=== PATIENT | male | born 1995 | race Caucasian/White ===

== ENCOUNTER 2017-06-02 02:10 | Emergency (ER) | payer OTHER ==
--- NOTE | 2017-06-02 02:40 | EDPHY ---
H & P Stated Complaint: left hand lac Time Seen by Provider: 06/02/17 02:24 HPI/ROS: Chief Complaint: Hand laceration HPI: 22-year-old male sustained a laceration in the palm of his hand at the base of his little finger with a serrated knife when he was trying to open a package about 3 hr ago. He is up-to-date in his tetanus. Does admit to drinking alcohol tonight. Denies any other injuries. ROS: 10 point Review of Systems is negative except as noted in the HPI. PMH: Denies Social History: No smoking, occasional alcohol, no recreational drug use Family History: non-contributory Physical Exam: Gen: Awake, Alert, slurred speech HEENT: Nose: no rhinorrhea Eyes: PERRLA, EOMI Mouth: Moist mucosa Ext: Left hand: There is a 2 cm horizontal laceration at the base of his 5th finger. It is into the subcutaneous fat only. He has full flexion strength of his D AP, PIP and MCP joint. Sensations intact distally. Capillary refills less than 2 sec. Skin: no rash Neuro: CN II-XII intact, Sensation grossly intact, Strength 5/5 in bilateral upper and lower extremities - Personal History Current Tetanus/Diphtheria Vaccine: Yes Current Tetanus Diphtheria and Acellular Pertussis (TDAP): Yes - Medical/Surgical History Hx Asthma: Yes Hx Chronic Respiratory Disease: No Hx Diabetes: No Hx Cardiac Disease: No Hx Renal Disease: No Hx Cirrhosis: No Hx Alcoholism: No Hx HIV/AIDS: No Hx Splenectomy or Spleen Trauma: No Other PMH: denies - Social History Smoking Status: Never smoked Constitutional: Initial Vital Signs Temperature (C) 36.3 C 06/02/17 02:14 Heart Rate 104 H 06/02/17 02:14 Respiratory Rate 16 06/02/17 02:14 Blood Pressure 149/94 H 06/02/17 02:14 O2 Sat (%) 96 06/02/17 02:14 O2 Delivery Mode Room Air Allergies/Adverse Reactions: No Known Allergies Allergy (Unverified 06/02/17 02:17) Home Medications: Medication Instructions Recorded Adderall 10 MG (*) 06/02/17 Medical Decision Making Procedures: Procedure: Laceration repair. Verbal consent was obtained from the patient. The 2 cm laceration on the left hand was anesthetized in the usual fashion. The wound was irrigated, draped and explored to its base with a gloved finger. There were no deep structures involved. No tendon injury was identified. The wound was repaired with 5, 5-0 Ethilon simple interrupted sutures. The wound repair was uncomplicated. The procedure was performed by myself. Departure - Departure Disposition: Home, Routine, Self-Care Clinical Impression: Hand laceration, Alcohol intoxication Condition: Good Instructions: Care For Your Stitches (ED), Laceration (ED), Alcohol Intoxication (ED) Additional Instructions: Sutures need to be removed in 10 days. Return to the emergency department for increasing redness, pain, swelling, discharge from the wound, fevers, chills, or any other concerns. Referrals: [facility] Valenzuela,. [Clinic] - As per Instructions
[2017-06-02 03:33] VITALS: BP 136/89
== END 2017-06-02 03:32 | disposition home or self-care (01) ==
PROC: 0HQGXZZ Repair Left Hand Skin, External Approach (ICD-10-PCS; principal; 2017-06-02)
DX: S61.412A Laceration without foreign body of left hand, initial encounter (principal); J45.909 Unspecified asthma, uncomplicated; F10.129 Alcohol abuse with intoxication, unspecified; W26.0XXA Contact with knife, initial encounter

== ENCOUNTER 2017-07-03 00:29 | Emergency (ER) | payer OTHER ==
--- NOTE | 2017-07-03 00:41 | EDPHY ---
H & P Time Seen by Provider: 07/03/17 00:33 HPI/ROS: Chief Complaint: Fall HPI: 22-year-old male was hanging out with friends this morning, drinking. Patient was sitting on the edge of a balcony when he accidentally fell backwards , approximately 10 ft to the ground. Patient does not recall landing. There is questionable loss of consciousness. On EMS arrival the patient was awake and alert. He is complaining of some pain behind his right shoulder, laceration is right forearm and some pain in his right leg. Denies headache. Denies neck pain. No chest pain, shortness of breath, abdominal pain, or any other complaints at this time. He has been awake alert and appropriate for EMS. ROS: 10 point Review of Systems is negative except as noted in the HPI. PMH: Denies Social History: No smoking, positive for alcohol, no recreational drug use Family History: non-contributory Physical Exam: Gen: Awake, Alert, Airway Intact, slurred speech, smells of alcohol HEENT: Head: Atraumatic Eyes: PERRLA, EOMI Nose: No epistaxis Mouth: Normal dentition, Airway patent Face: No deformity Neck: non-tender, no stepoff, Full ROM without pain Chest: non-tender, lungs CTA Heart: normal heart tones Abd: soft, non-tender, atraumatic Pelvis: non-tender, stable to AP and Lateral compression Back: atraumatic, no midline tenderness Ext: Patient has a 1.5 cm dog ear laceration on his right forearm, no bony tenderness or deformities, remainder of his extremity exam is unremarkable patient is complaining of some pain in his right leg however there is no bony tenderness or deformity. There is no discomfort with palpation or stressing. Also complaining of some discomfort behind his right shoulder. He has full range of motion right shoulder without pain. There is no reproducible tenderness. Skin: no rash Neuro: CN II-XII intact, Strength 5/5 in all extremities, sensation intact in all extremities - Medical/Surgical History Hx Asthma: Yes Hx Chronic Respiratory Disease: No Hx Diabetes: No Hx Cardiac Disease: No Hx Renal Disease: No Hx Cirrhosis: No Hx Alcoholism: No Hx HIV/AIDS: No Hx Splenectomy or Spleen Trauma: No Other PMH: denies - Social History Smoking Status: Never smoked Constitutional: Initial Vital Signs Temperature (C) 36.4 C 07/03/17 00:44 Heart Rate 94 07/03/17 00:44 Respiratory Rate 18 07/03/17 00:44 Blood Pressure 168/104 H 07/03/17 00:44 O2 Sat (%) 97 07/03/17 00:44 O2 Delivery Mode Room Air O2 (L/minute) 2 Allergies/Adverse Reactions: No Known Allergies Allergy (Unverified 06/02/17 02:17) Home Medications: Medication Instructions Recorded Adderall 10 MG (*) 06/02/17 Medical Decision Making Procedures: Procedure: Laceration repair. Verbal consent was obtained from the patient. The 1.5 cm laceration on the right forearm was anesthetized in the usual fashion. The wound was irrigated, draped and explored to its base with a gloved finger. There were no deep structures involved. No tendon injury was identified. The wound was repaired with 1 4-0 Ethilon horizontal mattress suture and 2, 4-0 Ethilon simple interrupted sutures. The wound repair was uncomplicated. The procedure was performed by myself. Differential Diagnosis: Is 22-year-old male status post fall from [place] with a laceration his arm. He is intoxicated. He has been observed in the emergency depart for 0.5 hr. He is not clinically sober. Is without complaint. He denies headache. He has a benign exam. His laceration has been closed. He is complaining of pain on his right shoulder. He has some tenderness over his AC joint. No bony tenderness. He does have full range of motion. X-ray shows no obvious fracture. Symptoms consistent probably with an AC separation. No leg pain. He is ambulating unassisted emergency department. He has sober friends here to give him a ride. He has been given wound care instructions. Will return for any concerns. Departure - Departure Disposition: Home, Routine, Self-Care Clinical Impression: Fall, Laceration of arm, Alcohol intoxication, AC joint pain Condition: Good Instructions: Care For Your Stitches (ED), Laceration (ED), Abuse of Alcohol ( ED), Alcohol Use Disorder (ED), Acromioclavicular Separation (ED) Additional Instructions: Sutures need to be removed in 7 days. Follow up with orthopedic surgeon, Dr. Hayes, in 4-5 days if you're shoulder pain is not improving. Please seek help to reduce your alcohol consumption. Return to the emergency department for increasing pain, headache, nausea, vomiting, confusion, or any other concerns. Referrals: NONE *PRIMARY CARE P,. [Primary Care Provider] - As per Instructions Constantin Hayse MD [Medical Doctor] - As per Instructions
[2017-07-03 05:12] VITALS: BP 116/69
== END 2017-07-03 05:47 | disposition home or self-care (01) ==
LOC: EDUNIT#
PROC: 0HQDXZZ Repair Right Lower Arm Skin, External Approach (ICD-10-PCS; principal; 2017-07-03)
DX: S51.811A Laceration without foreign body of right forearm, initial encounter (principal); S49.91XA Unspecified injury of right shoulder and upper arm, initial encounter; F10.129 Alcohol abuse with intoxication, unspecified; W13.0XXA Fall from, out of or through balcony, initial encounter
CPT/HCPCS: A4565

== ENCOUNTER 2017-07-09 13:52 | Emergency (ER) | payer OTHER ==
--- NOTE | 2017-07-09 15:31 | EDPHY ---
H & P Smoking Status: Never smoked Time Seen by Provider: 07/09/17 14:22 HPI/ROS: CHIEF COMPLAINT: Right leg pain HISTORY OF PRESENT ILLNESS: 22-year-old male presents to the emergency department with pain in his right leg. He states that he fell off of a deck over 1 week ago. He does not remember injuring his leg and if he did he was very minor. He does not recall any abrasion or puncture wound. He does not think that he was bit by anything. He states over last few days he has noticed redness, pain and swelling. He denies pain in his calf. Denies pain radiating up his leg into his knee or hip. ROS: Denies fever, chills, calf pain. (LaurenkatrinaNevaeh Celis) Past Medical/Surgical History: Negative (Nevaeh Olguin) Social History: [employer] student (SharifNevaeh Celis) Physical Exam: On examination of the right leg, there is redness from the distal 3rd of the right anterior leg with surrounding swelling. It is not circumferential. No lymphangitis. No calf pain. No palpable bony tenderness. No evidence of retained foreign body. His right ankle and right knee are nontender. Afebrile and nontoxic-appearing. (Lilia Olguinvini Celis) Constitutional: Initial Vital Signs Temperature (C) 36.8 C 07/09/17 13:58 Heart Rate 109 H 07/09/17 13:58 Respiratory Rate 16 07/09/17 13:58 Blood Pressure 128/66 H 07/09/17 13:58 O2 Sat (%) 94 07/09/17 13:58 O2 Delivery Mode Room Air Allergies/Adverse Reactions: No Known Allergies Allergy (Unverified 07/09/17 14:01) Home Medications: Medication Instructions Recorded Adderall 10 MG (*) 06/02/17 Cephalexin [Keflex] 500 mg PO QID #28 cap 07/09/17 Sulfamethox/Tmp 800/160 mg 1 tab PO BID #14 tab 07/09/17 [Bactrim DS] MDM/Departure - MDM Procedures: Procedure: Abscess drainage. The patient's abscess was located on the anterior right leg. Risks, benefits, alternatives discussed with the patient and consent obtained. The abscess was incised with a #11 blade and large amount of purulent drainage was expressed. The wound was irrigated and packed. The patient tolerated the procedure well. The procedure was performed by myself. (Nevaeh Olguin) ED Course/Re-evaluation: X-rays were obtained which revealed no fractures. This was obtained after incision and drainage. The gas and air seen on x-ray is likely as a result of post procedure. The wound was incised and a large amount of purulent drainage was expressed. The wound was irrigated packing was placed. The patient will return in 48 hr for packing removal and recheck. He was started on Keflex and Bactrim. Wound cultures pending. There is no evidence of compartment syndrome. The patient had relief after the wound was opened and drained. There is no evidence of bony involvement or osteomyelitis on x-ray. The patient was instructed to return sooner if he developed fever, increasing pain or swelling, or any other concerns. (Nevaeh Olguin) The patient was evaluated and managed by the Physician Fence Installer Foreman. I discussed the patient's presentation and course with the physician bakery assistant and agree with the evaluation. My co-signature indicates that I have reviewed this chart and I agree with the findings and plan of care as documented. I am the secondary supervising physician. (Eloisa Sarmiento) - Depart Disposition: Home, Routine, Self-Care Clinical Impression: Abscess of right leg Condition: Good Instructions: Cellulitis (ED), Abscess (ED) Additional Instructions: Keflex and Bactrim as directed for 1 week. Do not apply ice to the wound. You may apply warm compresses as discussed. Ibuprofen 600 mg every 8 hr as needed for pain. Prescriptions: Cephalexin [Keflex] 500 mg PO QID #28 cap Sulfamethox/Tmp 800/160 mg [Bactrim DS] 1 tab PO BID #14 tab Referrals: Deonna Sneed DO [Doctor of Osteopathy] - As per Instructions
[2017-07-09 15:42] VITALS: BP 128/89
== END 2017-07-09 15:42 | disposition home or self-care (01) ==
PROC: 0H9KXZZ Drainage of Right Lower Leg Skin, External Approach (ICD-10-PCS; principal; 2017-07-09)
DX: L02.415 Cutaneous abscess of right lower limb (principal)

== ENCOUNTER 2017-11-30 14:04 | Emergency (ER) | payer OTHER ==
[2017-11-30 14:08] VITALS: BP 133/79
--- NOTE | 2017-11-30 14:32 | EDPHY ---
H & P Stated Complaint: L ANKLE INJURY Time Seen by Provider: 11/30/17 14:26 HPI/ROS: CHIEF COMPLAINT: Left ankle pain and swelling HISTORY OF PRESENT ILLNESS: Patient is a 22-year-old man who rolled his ankle playing basketball last night. He has pain and swelling to the lateral malleolus. He has some pain to the distal fibula as well. No other injuries. No foot pain. No knee pain. He cannot bear weight. Severity: Moderate Modifying factors: Worse with weight-bearing REVIEW OF SYSTEMS: Constitutional: denies: chills, fever, recent illness, recent injury EENTM: denies: blurred vision, double vision, nose congestion Respiratory: denies: cough, shortness of breath Cardiac: denies: chest pain, irregular heart rate, lightheadedness, palpitations Gastrointestinal/Abdominal: denies: abdominal pain, diarrhea, nausea, vomiting, blood streaked stools Genitourinary: denies: dysuria, frequency, hematuria, pain Musculoskeletal: denies: joint pain, muscle pain Skin: denies: lesions, rash, jaundice, bruising Neurological: denies: headache, numbness, paresthesia, tingling, dizziness, weakness Hematologic/Lymphatic: denies: blood clots, easy bleeding, easy bruising Immunologic/allergic: denies: HIV/AIDS, transplant 10 systems reviewed and negative except as noted EXAM: GENERAL: Well-appearing, well-nourished and in no acute distress. HEAD: Atraumatic, normocephalic. EYES: Pupils equal round and reactive to light, extraocular movements intact, sclera anicteric, conjunctiva are normal. ENT: TMs normal, nares patent, oropharynx clear without exudates. Moist mucous membranes. NECK: Normal range of motion, supple without lymphadenopathy or JVD. LUNGS: Breath sounds clear to auscultation bilaterally and equal. No wheezes rales or rhonchi. HEART: Regular rate and rhythm without murmurs, rubs or gallops. ABDOMEN: Soft, nontender, normoactive bowel sounds. No guarding, no rebound. No masses appreciated. BACK: No CVA tenderness, no spinal tenderness, step-offs or deformities EXTREMITIES: Swelling of the left ankle primarily over the lateral malleolus. He does have bony tenderness. No foot pain or deformity. No knee pain. Some pain to the distal fibula as well. Normal pulses and sensation distally. NEUROLOGICAL: Cranial nerves II through XII grossly intact. Normal speech, normal gait. 5/5 strength, normal movement in all extremities, normal sensation , normal reflexes PSYCH: Normal mood, normal affect. SKIN: Warm, dry, normal turgor, no visible rashes or lesions. Source: Patient Exam Limitations: No limitations - Personal History Current Tetanus Diphtheria and Acellular Pertussis (TDAP): Yes Tetanus Vaccine Date: < 10 YEARS - Medical/Surgical History Hx Asthma: Yes Hx Chronic Respiratory Disease: No Hx Diabetes: No Hx Cardiac Disease: No Hx Renal Disease: No Hx Cirrhosis: No Hx Alcoholism: No Hx HIV/AIDS: No Hx Splenectomy or Spleen Trauma: No Other PMH: denies - Family History Significant Family History: No pertinent family hx - Social History Smoking Status: Never smoked Alcohol Use: Occasionally Drug Use: None Constitutional: Initial Vital Signs Temperature (C) 36.6 C 11/30/17 14:06 Heart Rate 123 H 11/30/17 14:06 Respiratory Rate 16 11/30/17 14:06 Blood Pressure 133/79 H 11/30/17 14:06 O2 Sat (%) 95 11/30/17 14:06 O2 Delivery Mode Room Air Allergies/Adverse Reactions: No Known Allergies Allergy (Unverified 07/09/17 14:01) Home Medications: Medication Instructions Recorded Adderall 10 MG (*) 06/02/17 Cephalexin [Keflex] 500 mg PO QID #28 cap 07/09/17 Sulfamethox/Tmp 800/160 mg 1 tab PO BID #14 tab 07/09/17 [Bactrim DS] Hydrocodone/APAP 5/325 [[place] 1 - 2 tab PO Q4H PRN #7 tab 11/30/17 5/325 (RX)] Medical Decision Making - Diagnostics Imaging Results: Imaging Impressions Ankle X-Ray 11/30/17 14:30 Impression: Nondisplaced spiral fracture coursing distal fibular shaft. 2. Left Tibia-Fibula, 2 views History: Distal fibular shaft fracture Findings: No tibial or proximal fibular shaft fracture is identified. The proximal tibiofibular relationship is normal. Impression: No direct evidence for a proximal intraosseous ligament injury. Tibia/Fibula X-Ray 11/30/17 14:30 Impression: Nondisplaced spiral fracture coursing distal fibular shaft. 2. Left Tibia-Fibula, 2 views History: Distal fibular shaft fracture Findings: No tibial or proximal fibular shaft fracture is identified. The proximal tibiofibular relationship is normal. Impression: No direct evidence for a proximal intraosseous ligament injury. Imaging: Discussed imaging studies w/ scallop binder Radiologist Procedures: Procedure: Splint placement. A posterior short-leg and stirrup splint was applied. After application of the splint I returned and re-examined the patient. The splint was adequately immobilizing the joint and distal to the splint the patient's circulation and sensation was intact. ED Course/Re-evaluation: We discussed the x-ray results. Patient is frustrated. We will place him in a splint and make him nonweightbearing until he follows up with Orthopedics. We discussed indications for returning. Differential Diagnosis: Partial list of the Differential diagnosis considered include but were not limited to; ankle sprain, ankle fracture and although unlikely based on the history and physical exam, I also considered foot fracture, knee injury, vascular injury. I discussed these differential diagnoses and the plan with the patient as well as the usual and expected course. The patient understands that the diagnosis is provisional and that in medicine we are not always correct and that further workup is often warranted. Usual and customary warnings were given. All of the patient's questions were answered. The patient was instructed to return to the emergency department should the symptoms at all worsen or return, otherwise to followup with the physician as we discussed. Departure - Departure Disposition: Home, Routine, Self-Care Clinical Impression: Fracture of ankle, lateral malleolus, left, closed Qualifiers: Encounter type: initial encounter Fracture alignment: nondisplaced Qualified Code(s): S82.65XA - Nondisplaced fracture of lateral malleolus of left fibula, initial encounter for closed fracture Condition: Fair Instructions: Ankle Fracture (ED) Referrals: NONE *PRIMARY CARE P,. [Primary Care Provider] - As per Instructions Constantin Hayes MD [Medical Doctor] - 5-7 days, call for appt. Prescriptions: Hydrocodone/APAP 5/325 [[place] 5/325 (RX)] 1 - 2 tab PO Q4H PRN #7 tab PRN Reason: Pain, Moderate
== END 2017-11-30 15:52 | disposition home or self-care (01) ==
PROC: 2W3RX1Z Immobilization of Left Lower Leg using Splint (ICD-10-PCS; principal; 2017-11-30)
DX: S82.65XA Nondisplaced fracture of lateral malleolus of left fibula, initial encounter for closed fracture (principal); W18.40XA Slipping, tripping and stumbling without falling, unspecified, initial encounter; Y93.67 Activity, basketball; Y92.310 Basketball court as the place of occurrence of the external cause